=== PATIENT | female | born 1960 | race Caucasian/White ===

== ENCOUNTER 2019-12-09 14:41 | Emergency (ER) | payer BC, SELFPAY ==
--- NOTE | ~2019-12-09 | XR_ITS ---
EXAMINATION: XR chest 1V portable 12/09/2019 15:39 INDICATION: Cough, fever and nausea PROCEDURE: AP portable chest COMPARISON: No prior studies for comparison. FINDINGS: The lungs are clear. The cardiomediastinal silhouette is within normal limits. There are no pleural effusions. There is no pneumothorax suspected. IMPRESSION: 1: NO ACUTE CARDIOPULMONARY DISEASE. Reviewed, dictated and finalized at location A.
--- NOTE | ~2019-12-09 | CT_ITS ---
EXAMINATION: CT abdomen pelvis w con EXAM DATE: 12/09/2019 16:53 INDICATION: Nausea and vomiting. Diarrhea. TECHNIQUE: Spiral CT of the abdomen and pelvis was performed following intravenous injection of 100 m L Omnipaque 350. Axial, coronal and sagittal images were reviewed. The dose-length product (DLP) fo r this examination was 1260.58 mGy-cm. The exposure was tailored according to patient size (auto mA exposure control), and iterative reconstruction (ASIR) was used as additional dose reduction techniqu e. There is no prior study for comparison. FINDINGS: The liver, spleen, adrenal glands and pancreas are unremarkable. There are cholecystectomy clips. Portal and splenic veins are patent. Kidneys enhance symmetrically. There is no hydronephr osis. The uterus is not identified and has likely been surgically resected. The bladder is unremar kable. There is no retroperitoneal or pelvic lymphadenopathy. There is mild scattered arterioscler otic disease. The appendix is normal. There is small sliding gastroesophageal hiatal hernia. There is expected am ount of colonic stool. No free intraperitoneal gas. The heart is normal in size. There are no pe ricardial or pleural effusions. The lung bases are unremarkable. The bones are unremarkable. IMPRESSION: 1. No acute intra-abdominal findings. Reviewed, dictated and finalized at location G.
[2019-12-09 15:00] VITALS: BP 110/59; PULSE 83; RESP 21; TEMP 37.1; O2SAT 100
[2019-12-09 15:08] VITALS: BP 117/74; PULSE 87; RESP 21; O2SAT 100
[2019-12-09 15:12] VITALS: BP 108/69; BP 110/59; BP 117/74; PULSE 75; PULSE 78; PULSE 88
[2019-12-09 15:27] LABS: Basophils Absolute Auto 0.1 K/mm3 (0.0-0.1); Basophils Percent Auto 0.5 % (0.2-1.2); Eosinophils Absolute Auto 0.1 K/mm3 (0-0.3); Eosinophils Percent Auto 0.6 % (0-4.4); Hematocrit 38.3 % (37.0-47.0); Hemoglobin 12.7 g/dL (12.0-15.0); Immature Granulocyte Percent A 0.6 % (0-0.5); Lymphocytes Absolute Auto 2.16 K/mm3 (0.9-3.2); Lymphocytes Percent Auto 13.3 % (18.3-44.2); Mean Corpuscular HGB Conc 33.2 g/dl (32-36); Mean Corpuscular Hemoglobin 26.3 pg (26-34); Mean Corpuscular Volume 79.5 fl (80-100); Mean Platelet Volume 8.7 fl (7.4-10.4); Monocytes Absolute Auto 1.9 K/mm3 (0.1-0.6); Monocytes Percent Auto 11.6 % (2.6-8.5); Neutrophils Percent Auto 73.4 % (45.5-73.1); Platelet Count Result 444 k/mm3 (150-375); Red Blood Count 4.82 M/mm3 (4.2-5.4); Red Cell Distribution Width 13.4 % (11.5-14.5); White Blood Count 16.3 K/mm3 (4.5-10.0)
[2019-12-09] MEDS: SODIUM CHLORIDE 0.9% IV 1,000 ML 999 ML IV CONT (15:28)
[2019-12-09 15:41] LABS: Alanine Aminotransferase 17 U/L (4-35); Albumin Level 4.3 g/dL (3.5-5.1); Alkaline Phosphatase 79 U/L (38-126); Anion Gap 10 mmol/L (8-16); Aspartate Amino Transferase 22 U/L (14-36); Bilirubin,Total 0.8 mg/dL (0.2-1.3); Blood Urea Nitrogen 16 mg/dL (7-17); Carbon Dioxide 28 mmol/L (22-30); Chloride 86 mmol/L (98-107); Estimated CRCL calculation 48 ml/min; Estimated Glomerular Filt Rate 46; Glucose 130 mg/dL (65-105); Lipase 102 U/L (23-300); Potassium 3.6 mmol/L (3.4-5.0); Sodium 124 mmol/L (137-145)
[2019-12-09 15:43] LABS: Add Urine Microscopic? YES
[2019-12-09 15:47] LABS: Appearance Urine Clear (Clear); Color Urine Yellow (Yellow); Specific Grav Ur 1.015 (1.001-1.035); pH Urine 5.5 (5.0-9.0)
[2019-12-09 15:48] LABS: Bilirubin Urine 1+ (Negative); Blood Urine Negative (Negative); Glucose Urine UA Negative (Negative); Ketones Urine Trace mg/dL (Negative); Nitrate Urine Negative (Negative); Protein Urine Trace mg/dL (Negative)
[2019-12-09 15:49] LABS: Leukocyte Esterase Ur Trace LEU/UL (Negative); RBC Urine 0-2 /hpf (0-2); Squamous Epithelial Cell Urine Few /hpf (Few); WBC Urine 0-3 /hpf (0-3)
[2019-12-09 15:50] LABS: Bacteria Urine Trace /hpf; Mucus Urine Rare /lpf
[2019-12-09 16:33] VITALS: BP 121/73; PULSE 77; RESP 16; O2SAT 99
--- NOTE | 2019-12-09 17:57 | ED.GENADULT ---
HPI - General Adult General Chief complaint: Nausea/Vomiting/Diarrhea Stated complaint: vomiting, diarrhea Time Seen by Provider: 12/09/19 14:50 History of Present Illness HPI narrative: Patient is a 59-year-old female who presents to the ER from her primary care physician's office for fluids. Patient reports she has felt ill for about 1 week. She was tested for COVID-19 as well as influenza and both results came back negative in the last 24 hours. She reports fevers as well as runny nose and sore throat. She has cough but no shortness of breath. She is also been having nausea with vomiting and some diarrhea. She drinks water as well as Gatorade to stay hydrated. No loss of consciousness. No known sick contacts she lives at home by herself. Related Data Home Medications Medication Instructions Recorded Confirmed albuterol sulfate 2 puff INHALATION QID 12/09/19 budesonide-formoterol [Symbicort] 2 puff INHALATION Q12H 12/09/19 cholecalciferol (vitamin D3) 125 mcg PO DAILY 12/09/19 [Vitamin D3] coenzyme Q10 [Co Q-10] 200 mg PO DAILY 12/09/19 esomeprazole magnesium 40 mg PO DAILY 12/09/19 ezetimibe 10 mg PO DAILY 12/09/19 hydrochlorothiazide 25 mg PO DAILY 12/09/19 levothyroxine 100 mcg PO DAILY 12/09/19 metformin 500 mg PO BID 12/09/19 olopatadine 2 spray INTRANASAL BID 12/09/19 oxybutynin chloride 5 mg PO DAILY 12/09/19 sertraline 50 mg PO DAILY 12/09/19 simvastatin 40 mg PO DAILY 12/09/19 telmisartan 40 mg PO DAILY 12/09/19 Allergies Allergy/AdvReac Type Severity Reaction Status Date / Time levofloxacin Allergy Unknown Unknown Verified 12/09/19 15:02 verapamil Allergy Unknown Unknown Verified 12/09/19 15:02 Review of Systems Constitutional: Constitutional: Reports fever(s) and Reports weakness ENT: Reports nasal congestion and Reports sore throat Cardiovascular: Cardiovascular: Denies chest pain and Denies radiating jaw, neck or arm pain Respiratory: Respiratory: Reports cough, Denies dyspnea and Denies wheezing Gastrointestinal: Gastrointestinal: Denies abdominal pain, Reports diarrhea, Reports nausea and Reports vomiting Genitourinary: Genitourinary: Denies nocturia, Denies dysuria and Denies flank pain Musculoskeletal: Musculoskeletal: Reports myalgias PMFSH Past Medical History Medical History (Updated 12/09/19 @ 18:37 by Aubrey López MD) Diabetes GERD (gastroesophageal reflux disease) Hyperlipidemia Hypothyroid Surgical History Surgical History (Updated 12/09/19 @ 18:32 by Aubrey López MD) H/O: hysterectomy Social History Social History Gender identity (if verbalized by the patient): Female Exam Narrative: Exam Narrative: GENERAL: Well-appearing, well-nourished, and in no acute distress. HEAD: Normocephalic, atraumatic. ENT: Mucous membranes moist. CHEST: Clear to auscultation. No respiratory distress. HEART: Regular rate and rhythm. Normal peripheral pulses. ABDOMEN: Soft, nontender, nondistended. EXTREMITIES: Normal range of motion. No edema. SKIN: Warm, dry, no rash. NEURO: Alert and oriented x3. PSYCH: Normal mood and affect. Course Course Emergency Course: Hydrated. Informed of results. Recommend follow-up with PCP. Encourage hydration with Pedialyte and will give anti-medics for home so she can tolerate a better meal. Vital Signs Vital signs: Vital Signs Temperature 98.7 F 12/09/19 15:00 Pulse Rate 83 12/09/19 15:00 Respiratory Rate 21 H 12/09/19 15:00 Blood Pressure 110/59 L 12/09/19 15:00 Pulse Oximetry 100 12/09/19 15:00 Temperature 98.7 F 12/09/19 15:00 Pulse Rate 77 12/09/19 16:33 Respiratory Rate 16 12/09/19 16:33 Blood Pressure 121/73 12/09/19 16:33 Pulse Oximetry 99 12/09/19 16:33 Medical Decision Making Vital Signs Vital Signs: Vital Signs Temperature 98.7 F 12/09/19 15:00 Pulse Rate 83 12/09/19 15:00 Respiratory Rate 21 H 12/09/19 15:00 Blood Pressure 110/59 L 12/08
[2019-12-09 18:39] VITALS: BP 113/61; PULSE 79; RESP 20; O2SAT 98
== END 2019-12-09 18:40 | disposition home or self-care (01) ==
PROVIDERS: Emergency Provider Emergency Medicine; PCP Physician Assistant
DX: B34.9 Viral infection, unspecified (principal); E03.9 Hypothyroidism, unspecified; E11.9 Type 2 diabetes mellitus without complications; Z79.84 Long term (current) use of oral hypoglycemic drugs; K21.9 Gastro-esophageal reflux disease without esophagitis
CPT/HCPCS: 36415; 71045; 74177; 80053; 81001; 83690; 85025; 96360; 99284; J7030; Q9967

== ENCOUNTER 2019-12-15 12:43 | Emergency (ER) | payer BC, SELFPAY ==
[2019-12-15 12:56] VITALS: BP 153/92; PULSE 85; RESP 16; TEMP 37.2; O2SAT 98
[2019-12-15] MEDS: TETANUS,DIPHTHERIA,AC PERTUSSIS ADULT (0.5 ML) BOOSTRIX IM (13:28)
--- NOTE | 2019-12-15 13:44 | ED.WOUNDLAC ---
HPI - Wound/Laceration General Chief Complaint: Wound/Laceration Stated Complaint: right finger laceration Time Seen by Provider: 12/15/19 13:19 Source: patient and RN notes reviewed Mode of arrival: ambulatory Limitations: no limitations History of Present Illness HPI narrative: Patient presents today complaining of lacerations to her right fourth and fifth fingers. She was using a mandolin slicer to cut carrots at home just prior to arrival. States the carrot slipped out of her finger and she cut her hand. She is not up-to-date on her tetanus vaccine. She has tried no [id number] interventions prior to arrival. Related Data Home Medications Medication Instructions Recorded Confirmed albuterol sulfate 2 puff INHALATION QID 12/09/19 12/15/19 budesonide-formoterol [Symbicort] 2 puff INHALATION Q12H 12/09/19 12/15/19 cholecalciferol (vitamin D3) 125 mcg PO DAILY 12/09/19 12/15/19 [Vitamin D3] coenzyme Q10 [Co Q-10] 200 mg PO DAILY 12/09/19 12/15/19 esomeprazole magnesium 40 mg PO DAILY 12/09/19 12/15/19 ezetimibe 10 mg PO DAILY 12/09/19 12/15/19 hydrochlorothiazide 25 mg PO DAILY 12/09/19 12/15/19 levothyroxine 100 mcg PO DAILY 12/09/19 12/15/19 metformin 500 mg PO BID 12/09/19 12/15/19 olopatadine 2 spray INTRANASAL BID 12/09/19 12/15/19 oxybutynin chloride 5 mg PO DAILY 12/09/19 12/15/19 sertraline 50 mg PO DAILY 12/09/19 12/15/19 simvastatin 40 mg PO DAILY 12/09/19 12/15/19 telmisartan 40 mg PO DAILY 12/09/19 12/15/19 doxycycline hyclate 100 mg PO DAILY 12/15/19 12/15/19 montelukast 10 mg PO DAILY 12/15/19 12/15/19 prednisone 10 mg PO DAILY 12/15/19 12/15/19 Allergies Allergy/AdvReac Type Severity Reaction Status Date / Time levofloxacin Allergy Unknown Unknown Verified 12/15/19 12:46 verapamil Allergy Unknown Unknown Verified 12/15/19 12:46 Review of Systems Review of Systems: Narrative: CONSTITUTIONAL: Denies body aches, fever, chills, or sweats. EYES: Denies visual changes, redness, or discharge. ENT: Denies rhinorrhea, congestion, sore throat, or otalgia. CARDIOVASCULAR: Denies chest pain, palpitations, or edema. RESPIRATORY: Denies cough or dyspnea. GASTROINTESTINAL: Denies abdominal pain, nausea, vomiting, or diarrhea. GENITOURINARY: Denies dysuria or hematuria. SKIN: Denies rash, itching. + Lacerations to right fourth and fifth fingers MUSCULOSKELETAL: Denies back pain, joint pain, or myalgia. NEUROLOGIC: Denies headache, numbness, tingling, or weakness. PSYCH: Denies depression or anxiety. [facility] Past Medical History Medical History (Updated 12/15/19 @ 13:49 by Stella Calvo, [facility], ) Diabetes GERD (gastroesophageal reflux disease) Hyperlipidemia Hypothyroid Surgical History Surgical History (Updated 12/09/19 @ 18:32 by Aubrey López MD) H/O: hysterectomy Social History Social History Gender identity (if verbalized by the patient): Female Comments At time of signature, I have reviewed and agree with nursing past medical, surgical, social and family history unless otherwise noted. Please see nursing chart for further information. There is no relevant family history pertinent to the presenting complaint Exam Narrative: Exam Narrative: GENERAL: Well-appearing, well-nourished, and in no acute distress. HEAD: Normocephalic, atraumatic. EYES: EOMI. No redness or drainage. Conjunctivae normal. ENT: Mucous membranes pink and moist. NECK: Normal AROM. CHEST: No respiratory distress. EXTREMITIES: Normal range of motion. No edema. SKIN: Warm, dry, no rash. Capillary refill normal. Normal skin turgor. Right 4th finger: 1x1.5cm Skin avulsion to dorsum of the finger at the PIP. Moderate active bleeding. Right 5th finger: 1cm superficial flap laceration to the dorsum of the PIP. No active bleeding. Distal sensation intact. Capillary refill normal. NEURO: No focal deficits. Alert and oriented x3. Gait steady. PSYCH: Normal affect. No signs of depression or anxiety.
== END 2019-12-15 13:55 | disposition home or self-care (01) ==
PROVIDERS: Emergency Provider Nurse Practitioner; PCP Physician Assistant
DX: S61.204A Unspecified open wound of right ring finger without damage to nail, initial encounter (principal); W27.8XXA Contact with other nonpowered hand tool, initial encounter; S61.216A Laceration without foreign body of right little finger without damage to nail, initial encounter; Z23 Encounter for immunization; E11.9 Type 2 diabetes mellitus without complications; K21.9 Gastro-esophageal reflux disease without esophagitis; E78.5 Hyperlipidemia, unspecified; E03.9 Hypothyroidism, unspecified
CPT/HCPCS: 12001; 90471; 90715; 99212; G0463

== ENCOUNTER 2020-05-31 13:56 | Outpatient (CLI) | payer BC, SELFPAY ==
[2020-05-31 14:38] LABS: Alanine Aminotransferase 25 U/L (4-35); Albumin Level 4.6 g/dL (3.5-5.1); Alkaline Phosphatase 77 U/L (38-126); Anion Gap 15 mmol/L (8-16); Aspartate Amino Transferase 35 U/L (14-36); Bilirubin,Total 0.5 mg/dL (0.2-1.3); Blood Urea Nitrogen 16 mg/dL (7-17); Calcium 9.4 mg/dL (8.4-10.2); Carbon Dioxide 24 mmol/L (22-30); Chloride 90 mmol/L (98-107); Estimated Glomerular Filt Rate > 60; Glucose 149 mg/dL (65-105); Potassium 3.7 mmol/L (3.4-5.0); Sodium 129 mmol/L (137-145)
== END 2020-05-31 13:57 | disposition home or self-care (01) ==
LOC: ANHLAB 13:58
PROVIDERS: Visit Provider Physician Assistant
DX: E87.1 Hypo-osmolality and hyponatremia (principal)
CPT/HCPCS: 36415; 80053

== ENCOUNTER → 2020-07-26 11:27 | Outpatient (CLI) | payer BC, SELFPAY ==
--- NOTE | ~2020-07-26 | MM_ITS ---
EXAMINATION: MM screening pancho BI w liz HISTORY: Screening mammogram TECHNIQUE: Craniocaudal and mediolateral oblique 3-D tomosynthesis images were obtained and synthetic 2-D images were generated. CAD analysis was submitted and interpreted. COMPARISON: 01/27/2019 BREAST PARENCHYMAL COMPOSITION: The breasts are almost entirely fatty. FINDINGS: There is no evidence of suspicious mass, calcification, or architectural distortion to sugg est malignancy in either breast. There has been no suspicious interval change. IMPRESSION: 1. No mammographic evidence of malignancy. 2. Recommend routine screening mammography in one year. BI-RADS Category 1: Negative Reviewed, dictated and finalized at location A.
== END ==
PROVIDERS: Visit Provider Physician Assistant
DX: Z12.31 Encounter for screening mammogram for malignant neoplasm of breast (principal)
CPT/HCPCS: 77063; 77067

== ENCOUNTER → 2021-05-14 10:29 | Outpatient (CLI) | payer BC, SELFPAY ==
--- NOTE | ~2021-05-14 | MR_ITS ---
EXAMINATION: MR lumbar spine wo [facility] EXAM DATE: 05/14/2021 11:23 INDICATION: M54.50 - Low back pain, unspecified . TECHNIQUE: Multi-sequential, multiplanar MR images of the lumbar spine were obtained without contrast . Sagittal T1, T2, T2 fat saturation images. Axial T2 weighted images. There is no prior study for comparison. FINDINGS: There is mild to moderate disc disease L3-4 and L4-5. The vertebral bodies are aligned in t he AP dimension. The conus medullaris terminates at the T12-L1 level and has normal signal intensity and morphology. Paraspinal soft tissue is unremarkable. There are no suspicious marrow signal abnorm alities. Level by level evaluation: T12-L1: Disc does not extend beyond the endplate margin. Facet arthropathy: Mild. Neural foraminal stenosis: No stenosis. Central canal stenosis: No stenosis. L1-L2: Disc does not extend beyond the endplate margin. Facet arthropathy: Mild. Neural foraminal stenosis: No stenosis. Central canal stenosis: No stenosis. L2-L3: There is a minimal diffuse disc bulge. Facet arthropathy: Mild. Neural foraminal stenosis: No stenosis. Central canal stenosis: No stenosis. L3-L4: There is a mild diffuse disc bulge. Facet arthropathy: Mild to moderate. Neural foraminal stenosis: Mild to moderate right, mild left. Central canal stenosis: No stenosis. L4-L5: There is a mild diffuse disc bulge. Facet arthropathy: Moderate. Neural foraminal stenosis: Mild right. Central canal stenosis: Mild. L5-S1: There is a minimal diffuse disc bulge. Facet arthropathy: Mild to moderate left, mild right. Neural foraminal stenosis: Mild left. Central canal stenosis: No stenosis. IMPRESSION: 1. Mild to moderate lumbar spondylosis. Reviewed, dictated and finalized at location A. NESS DEVELOPMENT CONSULTANT
== END ==
PROVIDERS: Visit Provider Orthopaedic Surgery
DX: M54.50 Low back pain, unspecified (principal); M47.816 Spondylosis without myelopathy or radiculopathy, lumbar region
CPT/HCPCS: 72148

== ENCOUNTER → 2021-12-12 16:02 | Outpatient (CLI) | payer BC, SELFPAY ==
--- NOTE | ~2021-12-12 | MM_ITS ---
EXAMINATION: MM screening pancho BI w liz HISTORY: Screening mammogram TECHNIQUE: Craniocaudal and mediolateral oblique 3-D tomosynthesis images were obtained and synthetic 2-D images were generated. CAD analysis was submitted and interpreted. COMPARISON: 07/26/2020, 01/27/2019 bilateral screening mammogram examinations BREAST PARENCHYMAL COMPOSITION: There are scattered areas of fibroglandular density. FINDINGS: Stable mild fibroglandular asymmetry. Occasional benign calcifications. There is no evidenc e of suspicious mass, calcification, or architectural distortion to suggest malignancy in either [address]. There has been no suspicious interval change. IMPRESSION: 1. No mammographic evidence of malignancy. 2. Recommend routine screening mammography in one year. BI-RADS Category 2: Benign finding(s). Reviewed, dictated and finalized at location A.
== END ==
PROVIDERS: PCP Physician Assistant; Visit Provider Physician Assistant
DX: Z12.31 Encounter for screening mammogram for malignant neoplasm of breast (principal)
CPT/HCPCS: 77063; 77067

== ENCOUNTER → 2022-07-10 12:33 | Outpatient (CLI) | payer BC, SELFPAY ==
--- NOTE | ~2022-07-10 | XR_ITS ---
EXAMINATION: XR shoulder RT min 2V INDICATION: Right shoulder pain TECHNIQUE: Four views of the right shoulder are submitted. COMPARISON: None FINDINGS: Normal alignment. No fracture. There is moderate osteoarthritis of the acromioclavicular josh int and mild osteoarthritis of the glenohumeral joint. Soft tissues are unremarkable. IMPRESSION: 1. Osteoarthritis without acute osseous abnormality. Reviewed, dictated and finalized at location B.
== END ==
PROVIDERS: PCP Physician Assistant; Visit Provider Physician Assistant
DX: M25.511 Pain in right shoulder (principal); M19.011 Primary osteoarthritis, right shoulder
CPT/HCPCS: 73030

== ENCOUNTER → 2023-02-13 10:40 | Outpatient (CLI) | payer BC, SELFPAY ==
--- NOTE | ~2023-02-13 | US_ITS ---
EXAMINATION: US thyroid DATE: 02/13/2023 11:22 INDICATION: Thyroid nodule TECHNIQUE: Multiple ultrasound images of the thyroid were obtained. COMPARISON: None. FINDINGS: The right thyroid lobe measures 2.7 x 0.9 x 1.0 cm. The left thyroid lobe measures 2.7 x 0.9 x 0.7 c m. There is normal echotexture and echogenicity throughout the thyroid gland. No discrete nodules id entified. Normal vascular flow is present. IMPRESSION: Atrophic thyroid gland. No nodules detected. Reviewed, dictated and finalized at location K. TOP SETTER
--- NOTE | ~2023-02-13 | MM_ITS ---
EXAMINATION: MM screening pancho BI w liz HISTORY: Screening mammogram TECHNIQUE: Craniocaudal and mediolateral oblique 3-D tomosynthesis images were obtained and synthetic 2-D images were generated. CAD analysis was submitted and interpreted. COMPARISON: 12/12/2021, 07/26/2020, 03/29/2018 bilateral screening mammogram examinations BREAST PARENCHYMAL COMPOSITION: There are scattered areas of fibroglandular density. FINDINGS: Stable mild fibroglandular asymmetry and occasional benign calcifications. There is no evid ence of suspicious mass, calcification, or architectural distortion to suggest malignancy in either b reast. There has been no suspicious interval change. IMPRESSION: 1. No mammographic evidence of malignancy. 2. Recommend routine screening mammography in one year. BI-RADS Category 2: Benign finding(s). Reviewed, dictated and finalized at location A. GE MACHINE OPERATOR
== END ==
PROVIDERS: PCP Physician Assistant; Visit Provider Physician Assistant
DX: Z12.31 Encounter for screening mammogram for malignant neoplasm of breast (principal); E07.89 Other specified disorders of thyroid
CPT/HCPCS: 76536; 77063; 77067

== ENCOUNTER 2023-06-26 18:51 | Emergency (ER) | payer BC, SELFPAY ==
[2023-06-26 19:00] VITALS: BP 120/92; PULSE 83; RESP 16; TEMP 36.8; O2SAT 99
[2023-06-26 19:02] VITALS: BP 120/92; PULSE 83; RESP 16; TEMP 36.8; O2SAT 99
--- NOTE | 2023-06-26 19:10 | ED.EAR ---
HPI - Ear Problem General Chief complaint: Ear Stated complaint: Right Ear Irritation Time Seen by Provider: 06/26/23 19:10 Source: patient Mode of arrival: ambulatory Limitations: no limitations History of Present Illness HPI Narrative: Renu is a 63-year-old female patient presenting to the clinic today with complaints of right ear pain this been going on for the past week. Reports that the pain got worse today. Denies any fever chills. Has had nasal congestion and runny nose. Related Data Home Medications Medication Instructions Recorded Confirmed albuterol sulfate 90 mcg/actuation 2 puff inhalation QID 12/09/19 06/26/23 aerosol inhaler cholecalciferol (vitamin D3) 125 125 mcg PO DAILY 12/09/19 06/26/23 mcg (5,000 unit) tablet (Vitamin D3) coenzyme Q10 200 mg capsule (Co 200 mg PO DAILY 12/09/19 06/26/23 Q-10) esomeprazole magnesium 40 mg 40 mg PO DAILY 12/09/19 06/26/23 capsule,delayed release ezetimibe 10 mg tablet 10 mg PO DAILY 12/09/19 06/26/23 levothyroxine 100 mcg tablet 88 mcg PO DAILY 12/09/19 06/26/23 olopatadine 0.6 % nasal spray 2 spray intranasal BID 12/09/19 06/26/23 oxybutynin chloride 5 mg tablet 5 mg PO DAILY 12/09/19 06/26/23 telmisartan 40 mg tablet 40 mg PO DAILY 12/09/19 06/26/23 montelukast 10 mg tablet 10 mg PO DAILY 12/15/19 06/26/23 dapagliflozin propanediol 10 mg mg 06/26/23 tablet (Farxiga) duloxetine 60 mg capsule,delayed 60 mg PO DIRECTED 06/26/23 06/26/23 release famotidine 40 mg tablet 40 mg DIRECTED 06/26/23 06/26/23 fluticasone 250 mcg-salmeterol 50 1 inh inhalation DIRECTED 06/26/23 06/26/23 mcg/dose blistr powdr for inhalation Allergies Allergy/AdvReac Type Severity Reaction Status Date / Time verapamil Allergy Severe Anaphylaxis Verified 06/26/23 19:01 adhesive tape Allergy Mild Rash Verified 06/26/23 19:01 levofloxacin AdvReac Intermediate Nausea and Verified 06/26/23 19:01 Vomiting Review of Systems Review of Systems: Pertinent positives per HPI. Patient denies any fever, chills, rash, headache, visual changes, dizziness, cough, runny nose, sore throat, shortness of breath, chest pain, palpitations, nausea, vomiting, diarrhea, constipation, abdominal pain, or any urinary issues. [facility] Past Medical History Medical History Arthritis Asthma Congestion of nasal sinus Coughing Depression Diabetes Fibromyalgia GERD (gastroesophageal reflux disease) Hoarseness Hyperlipidemia Hypertension Hypothyroid OAB (overactive bladder) [place] (obstructive sleep apnea) Vertigo Wears glasses Wheezing Surgical History Surgical History H/O: hysterectomy History of bunionectomy History of carpal tunnel release of both wrists History of cholecystectomy History of colonoscopy History of tonsillectomy and adenoidectomy Family History Family History Other Arthritis Carcinoma of colon Cerebral aneurysm Depression Diabetes mellitus High cholesterol Hypertension Kidney disorder Social History Social History Smoking status: Never smoker Substance use: never Gender identity (if verbalized by the patient): Female Comments At the time of my signature, I reviewed and agree with the nursing past medical, surgical, social, and family history. There is no relevant family history pertinent to the patient complaint. Exam Narrative: General: Well-developed, obese, in no apparent distress Head: Normocephalic, atraumatic Eyes: Pupils equally round and reactive to light bilaterally, EOM intact, sclera and conjunctive clear, no discharge, lids normal Ears: Left TMs intact and clear, right TM intact, bulging, congested with fluid noted behind the TM, ear canals clear, no drainage, grossly hearing nor
== END 2023-06-26 19:19 | disposition home or self-care (01) ==
PROVIDERS: Emergency Provider Nurse Practitioner Family; PCP Physician Assistant
DX: H65.01 Acute serous otitis media, right ear (principal); M19.90 Unspecified osteoarthritis, unspecified site; J45.909 Unspecified asthma, uncomplicated; E11.9 Type 2 diabetes mellitus without complications; M79.7 Fibromyalgia; K21.9 Gastro-esophageal reflux disease without esophagitis; E78.5 Hyperlipidemia, unspecified; I10 Essential (primary) hypertension; E03.9 Hypothyroidism, unspecified
CPT/HCPCS: 99213; G0463

== ENCOUNTER 2024-02-15 11:36 | Outpatient (CLI) | payer MEDICARE, SELFPAY ==
--- NOTE | ~2024-02-15 | MM_ITS ---
EXAMINATION: MM screening pancho BI w liz HISTORY: Screening mammogram TECHNIQUE: Craniocaudal and mediolateral oblique 3-D tomosynthesis images were obtained and synthetic 2-D images were generated. CAD analysis was submitted and interpreted. COMPARISON: 02/13/2023, 12/12/2021, 07/26/2020 bilateral screening mammogram examinations BREAST PARENCHYMAL COMPOSITION: There are scattered areas of fibroglandular density. FINDINGS: Stable mild fibroglandular asymmetry. Occasional bilateral benign calcifications. There is no evidence of suspicious mass, calcification, o r architectural distortion to suggest malignancy in either breast. There has been no suspicious inter nav change. IMPRESSION: 1. No mammographic evidence of malignancy. 2. Recommend routine screening mammography in one year. BI-RADS Category 2: Benign finding(s). Reviewed, dictated and finalized at location A. NISTRATIVE SERVICES MANAGER
== END 2024-02-15 11:37 | disposition home or self-care (01) ==
LOC: MICIMG 11:37
PROVIDERS: PCP Physician Assistant; Visit Provider Physician Assistant
DX: Z12.31 Encounter for screening mammogram for malignant neoplasm of breast (principal)
CPT/HCPCS: 77063; 77067

== ENCOUNTER 2025-02-18 15:29 | Outpatient (CLI) | payer MEDICARE, BC, SELFPAY ==
--- NOTE | ~2025-02-18 | MM_ITS ---
EXAMINATION: MM screening pancho BI w liz HISTORY: Screening TECHNIQUE: Craniocaudal and mediolateral oblique 3-D tomosynthesis images were obtained and synthetic 2-D images were generated. CAD analysis was submitted and interpreted. COMPARISON: Comparison to multiple prior studies sequentially, with oldest reviewed study dated 01/27/2019. BREAST PARENCHYMAL COMPOSITION: Not Dense: The breasts are almost entirely fatty. FINDINGS: There is no evidence of suspicious mass, calcification, or architectural distortion to suggest malignancy in either breast. There has been no suspicious interval change. IMPRESSION: 1. No mammographic evidence of malignancy. 2. Recommend routine screening mammography in one year. BI-RADS Category 1: Negative Reviewed, dictated and finalized at location I. ING SUPERVISOR
== END 2025-02-18 15:30 | disposition home or self-care (01) ==
PROVIDERS: PCP Physician Assistant; Visit Provider Physician Assistant
DX: Z12.31 Encounter for screening mammogram for malignant neoplasm of breast (principal)
CPT/HCPCS: 77063; 77067